=== PATIENT | male | born 1960 | race Caucasian/White ===

== ENCOUNTER 2022-09-16 13:43 | Inpatient (IN) | payer MEDICARE ==
[~2022-09-16] VITALS: Ht 180.3 cm; Wt 68.1 kg
[2022-09-16 14:21] LABS: HEMATOCRIT 43.2 % (39.0-50.0); HEMOGLOBIN 13.9 g/dl (14.0-18.0); IMMATURE GRANULOCYTES 1.2 % (0.0-5.0); MEAN CELL VOLUME 101.6 fL CALC (80.0-100.0); MEAN CORPUSCULAR HGB 32.7 pG CALC (26.0-32.0); MEAN CORPUSCULAR HGB CONC 32.2 g/dL CAL (32.0-36.0); NEUT# 24.84 thou/uL (1.82-7.42); RED BLOOD COUNT 4.25 mill/uL (4.70-6.10); RED CELL DISTRI WIDTH 12.8 % (11.5-15.5)
[2022-09-16 14:46] LABS: ALBUMIN 4.7 g/dL (3.2-5.0); ALKALINE PHOSPHATASE 103 u/l (38-126); BILIRUBIN, TOTAL 0.4 mg/dL (0.0-1.4); BUN 27 mg/dL (9-20); BUN/CREATININE RATIO 11 (12-20 (CALC)); CHLORIDE 98 mmol/l (95-108); CREATININE 2.4 mg/dL (0.7-1.3); GFR FOR AFR.AMER. 34 ML/MIN (>=60 (CALC)); GFR OTHER RACES 28 ML/MIN (>=60 (CALC)); SGOT/AST 35 u/l (17-59); SODIUM 140 mmol/l (137-146)
[2022-09-16 15:12] LABS: ANION GAP 44 (6-22 (CALC))
[2022-09-16 15:13] LABS: CARBON DIOXIDE < 5 mmol/l (22-30); POTASSIUM 6.8 mmol/l (3.5-5.1)
[2022-09-16 15:19] LABS: URINE BILIRUBIN - DIPSTICK NEGATIVE (NEGATIVE); URINE BLOOD DIPSTICK MODERATE (NEGATIVE); URINE CLARITY CLEAR; URINE COLOR YELLOW; URINE GLUCOSE - DIPSTICK >=1000 mg/dL (NEGATIVE); URINE KETONE >=80 mg/dL (NEGATIVE); URINE LEUK ESTERASE NEGATIVE (Negative); URINE NITRITE - DIPSTICK NEGATIVE (Negative); URINE PH 5.5 (4.5-8.0); URINE PROTEIN - DIPSTICK TRACE mg/dL (NEG-TRACE); URINE SPECIFIC GRAVITY >=1.030; URINE UROBILINOGEN - DIPSTICK 0.2 E.U./dL (0.2)
[2022-09-16 15:30] LABS: URINE WBC 0-2 WBC/hpf (0-5)
[2022-09-16 19:18] LABS: CREATININE 1.9 mg/dL (0.7-1.3)
[2022-09-16 19:25] LABS: POTASSIUM 4.4 mmol/l (3.5-5.1)
[2022-09-16 21:50] LABS: CREATININE 1.7 mg/dL (0.7-1.3); POTASSIUM 4.2 mmol/l (3.5-5.1)
[2022-09-17 01:59] LABS: ANION GAP 15 (6-22 (CALC)); BUN 26 mg/dL (9-20); BUN/CREATININE RATIO 19 (12-20 (CALC)); CHLORIDE 113 mmol/l (95-108); CREATININE 1.4 mg/dL (0.7-1.3); GFR FOR AFR.AMER. > 60 ML/MIN (>=60 (CALC)); GFR OTHER RACES 52 ML/MIN (>=60 (CALC)); POTASSIUM 4.2 mmol/l (3.5-5.1); SODIUM 143 mmol/l (137-146)
[2022-09-17 02:03] LABS: CARBON DIOXIDE 19 mmol/l (22-30)
[2022-09-17 05:36] LABS: HEMATOCRIT 39.4 % (39.0-50.0); HEMOGLOBIN 13.7 g/dl (14.0-18.0); MEAN CELL VOLUME 92.3 fL CALC (80.0-100.0); MEAN CORPUSCULAR HGB 32.1 pG CALC (26.0-32.0); MEAN CORPUSCULAR HGB CONC 34.8 g/dL CAL (32.0-36.0); RED BLOOD COUNT 4.27 mill/uL (4.70-6.10); RED CELL DISTRI WIDTH 12.8 % (11.5-15.5)
[2022-09-17 05:51] LABS: ANION GAP 11 (6-22 (CALC)); BUN 26 mg/dL (9-20); BUN/CREATININE RATIO 21 (12-20 (CALC)); CARBON DIOXIDE 19 mmol/l (22-30); CHLORIDE 114 mmol/l (95-108); CREATININE 1.3 mg/dL (0.7-1.3); GFR FOR AFR.AMER. > 60 ML/MIN (>=60 (CALC)); GFR OTHER RACES 56 ML/MIN (>=60 (CALC)); POTASSIUM 3.8 mmol/l (3.5-5.1); SODIUM 140 mmol/l (137-146)
[2022-09-17 05:57] LABS: ALKALINE PHOSPHATASE 74 u/l (38-126); ANION GAP 12 (6-22 (CALC)); BILIRUBIN, TOTAL 0.3 mg/dL (0.0-1.4); BUN 26 mg/dL (9-20); BUN/CREATININE RATIO 21 (12-20 (CALC)); CARBON DIOXIDE 19 mmol/l (22-30); CHLORIDE 114 mmol/l (95-108); CREATININE 1.2 mg/dL (0.7-1.3); GFR FOR AFR.AMER. > 60 ML/MIN (>=60 (CALC)); GFR OTHER RACES > 60 ML/MIN (>=60 (CALC)); MAGNESIUM 2.1 mg/dL (1.6-2.3); SGOT/AST 32 u/l (17-59); SODIUM 141 mmol/l (137-146); TOTAL PROTEIN 6.2 g/dL (6.3-8.2)
[2022-09-17 06:02] LABS: ALBUMIN 3.6 g/dL (3.2-5.0)
[2022-09-17 07:46] VITALS: BP 115/56
[2022-09-17 10:14] LABS: ANION GAP 14 (6-22 (CALC)); BUN 24 mg/dL (9-20); BUN/CREATININE RATIO 20 (12-20 (CALC)); CARBON DIOXIDE 20 mmol/l (22-30); CHLORIDE 113 mmol/l (95-108); CREATININE 1.2 mg/dL (0.7-1.3); GFR FOR AFR.AMER. > 60 ML/MIN (>=60 (CALC)); GFR OTHER RACES > 60 ML/MIN (>=60 (CALC)); POTASSIUM 3.9 mmol/l (3.5-5.1); SODIUM 143 mmol/l (137-146)
[2022-09-17 13:59] LABS: ANION GAP 10 (6-22 (CALC)); BUN 19 mg/dL (9-20); BUN/CREATININE RATIO 20 (12-20 (CALC)); CARBON DIOXIDE 21 mmol/l (22-30); CHLORIDE 111 mmol/l (95-108); GFR FOR AFR.AMER. > 60 ML/MIN (>=60 (CALC)); GFR OTHER RACES > 60 ML/MIN (>=60 (CALC)); POTASSIUM 3.6 mmol/l (3.5-5.1); SODIUM 139 mmol/l (137-146)
[2022-09-18 05:10] LABS: HEMATOCRIT 38.3 % (39.0-50.0); HEMOGLOBIN 13.4 g/dl (14.0-18.0); MEAN CELL VOLUME 91.4 fL CALC (80.0-100.0); RED BLOOD COUNT 4.19 mill/uL (4.70-6.10); RED CELL DISTRI WIDTH 12.9 % (11.5-15.5)
[2022-09-18 05:51] LABS: ANION GAP 7 (6-22 (CALC)); BUN 12 mg/dL (9-20); BUN/CREATININE RATIO 16 (12-20 (CALC)); CARBON DIOXIDE 25 mmol/l (22-30); CHLORIDE 105 mmol/l (95-108); CREATININE 0.8 mg/dL (0.7-1.3); GFR FOR AFR.AMER. > 60 ML/MIN (>=60 (CALC)); GFR OTHER RACES > 60 ML/MIN (>=60 (CALC)); POTASSIUM 3.5 mmol/l (3.5-5.1); SODIUM 134 mmol/l (137-146)
[2022-09-18] MEDS ORDERED: LEVEMIR100 UNIT SC (08:34)
[2022-09-18] MEDS ORDERED: HUMALOG100 UNIT SC (08:34)
== END 2022-09-18 12:15 | disposition home or self-care (01) | DRG 639 ==
LOC: ED 13:43 → EDBD 13:43 → ED-I 14:42 → ED 14:42 → ED-I 15:30 → ED 16:50 → ICU 16:51
PROVIDERS: Emergency Medicine; ADMIT Internal Medicine; ATTEND Internal Medicine
DX: E10.10 Type 1 diabetes mellitus with ketoacidosis without coma (principal); E87.5 Hyperkalemia; E86.0 Dehydration; F17.200 Nicotine dependence, unspecified, uncomplicated; T38.3X6A Underdosing of insulin and oral hypoglycemic [antidiabetic] drugs, initial encounter; Z91.138 Patient's unintentional underdosing of medication regimen for other reason; Z79.4 Long term (current) use of insulin; Z96.41 Presence of insulin pump (external) (internal)